=== PATIENT | male | born 1995 | race Caucasian/White ===

== ENCOUNTER 2016-07-28 00:01 | Emergency (ER) | payer BC ==
[~2016-07-28] VITALS: Ht 182.9 cm; Wt 86.5 kg
[2016-07-28 00:03] VITALS: TEMP 36.5; Ht 182.9 cm; Wt 86.5 kg
[2016-07-28] MEDS ORDERED: AMPH10TA2 PO (00:24)
[2016-07-28 00:42] VITALS: BP 126/62; PULSE 54; O2SAT 98
--- NOTE | 2016-07-28 05:24 | EMERGENCY ROOM VISIT NOTE ---
History First contact with patient: 00:09 Chief Complaint: ABDOMINAL PAIN Stated Complaint: ILL/ABDOMINAL PAIN Nursing Triage Summary: pt reports generalized abd pain all day and then felt a "pop" approx 30 min ago. pt now feels numbness in bilateral hands. pt also reports feeling anxious. pt admits to smoking marijuana earlier today also. History of Present Illness The patient is a 20 year old male who presents to the Emergency Room with complaints of feeling anxious and nauseous after smoking marijuana a few hours ago that is now resolved since being in the ER. Patient states he smoked a different batch of marijuana. Patient states he feels fine now like to go. Patient denies chest pain, dyspnea, abdominal pain, vomiting, diarrhea, hallucinations, delusions, IV drug abuse or any other medical complaints. Review of Systems See HPI for pertinent positives & negatives. A total of 10 systems reviewed and were otherwise negative. Past Medical/Surgical History none Social History Smoking Status: Never Smoker Smokeless Tobacco Use: No Alcohol Use: occasionally Drug Use: marijuana Occupation Status: [employer] student Current/Historical Medications Scheduled Amphetamine-Dextroamphetamine 10MG (Adderall 10MG), 10 MG PO DAILY Allergies Coded Allergies: Penicillins (Verified Allergy, Unknown, rash, 07/28/16) Physical Exam Vital Signs Date Time Temp Pulse Resp B/P Pulse Ox O2 Delivery O2 Flow Rate FiO2 07/28/16 00:42 54 20 126/62 98 07/28/16 00:03 36.5 60 20 155/78 99 Room Air Pain Rating (0-10): 0 Physical Exam VITALS: Vitals are noted on the nurse's note and reviewed by myself. Vital signs stable. GENERAL: Pleasant male, in no acute distress, nondiaphoretic, well-developed well-nourished. SKIN: The skin was without rashes, erythema, edema, or bruising. There is no tenting of the skin. Capillary reflex less than 2 seconds. HEAD: Normocephalic atraumatic. EARS: External auditory canals clear, tympanic membranes pearly price without erythema or effusion bilaterally. EYES: Pupils equal round and reactive to light and accommodation. Conjunctivae without injection, sclerae without icterus. Extraocular movements intact. NOSE: Patent, turbinates without inflammation or discharge. MOUTH: Mucous membranes moist. pharynx without erythema or exudate. Uvula midline. Airway patent. Tongue does not deviate. NECK: Supple without nuchal rigidity. No lymphadenopathy. No thyromegaly. Cervical spine is nontender. No JVD. HEART: Regular rate and rhythm without murmurs gallops or rubs. LUNGS: Clear to auscultation bilaterally without wheezes, rales or rhonchi. No dullness to percussion. No retractions or accessory muscle use. ABDOMEN: Positive bowel sounds x 4. Normal tympanic percussion. Soft, nontender, without masses or organomegaly. Pepe sign negative. No guarding or rebound tenderness. MUSCULOSKELETAL: No muscle atrophy, erythema, or edema noted. NEURO: Patient was alert and oriented to person place and time. Normal sensation to light and sharp touch. No focal neurological deficits. Medical Decision & Procedures ED Course Prior records/ancillary studies reviewed and summarized above. Nursing notes reviewed. The patient's history was concerning for smoking marijuana. Differential diagnosis: Etiologies such as side effect of marijuana, metabolic, infection, hypo/ hyperglycemia, electrolyte abnormalities, cardiac sources, intracerebral event, toxicologic, neurologic, as well as others were entertained. Physical examination: As above. ER treatment provided: By mouth fluids On reassessment the patient felt better. Diagnostics interpretation by me: Deferred Exam and history seem consistent with smoking marijuana having side effects. Patient had no medical complaints and requested to leave. I felt was reasonable. He did not have an acute abdomen on exam. He is well-appearing. He was neurovascularly and neurologically intact. He was strongly encouraged to avoid illegal drugs and to follow-up with health services in a few days or here in the ER sooner for chest pain, abdominal pain, numbness, tingling, worsening signs or symptoms or as needed By the evaluation outlined above emergent etiologies such as infection, electrolyte abnormalities, cardiac sources, intracerebral event, toxologic, neurologic, abnormalities blood glucose , metabolic, as well as others were deemed relatively unlikely. The pt informed about the findings as listed above. All questions were answered and pleased with the treatment. Return instructions were outlined and the patient was discharged in stable condition. Referral: The patient was referred back to primary care physician for follow-up in 2 to 3 days for a recheck of the current condition. Medical Decision As above Impression Primary Impression: Marijuana abuse Departure Information Dispostion Home / Self-Care Condition GOOD Forms HOME CARE DOCUMENTATION FORM, IMPORTANT VISIT INFORMATION Patient Instructions Abdominal Pain - [facility], [facility] Additional Instructions Recommend avoiding illegal drugs. Ibuprofen(Motrin, Advil) may be used for fever or pain. Use 600mg every six hours as needed. Take with food. Avoid using more than 2400mg in a 24 hour period. Do not use 2400mg per day for more than three consecutive days without physician direction. Prolonged inappropriate use can lead to stomach upset or ulcers. (AND/OR) Acetaminophen(Tylenol) may be used for fever or pain. Use 1000mg every six hours as needed. Avoid using more than 3000mg in a 24 hour period. Rest and drink plenty of fluids as tolerated. Continue current medications. Avoid strenuous activities and anything that worsens your pain. Resume normal activities once your symptoms resolve. Return to the ER immediately for worsening or persistent chest pain, abdominal pain, vomiting, fevers, chest pains, difficulty breathing, worsening of your condition, or as needed. Follow up with your primary physician in 2-3 days for a recheck of your current condition.
== END 2016-07-28 00:46 | disposition home or self-care (01) ==
LOC: C.EDB 00:01 → EDBD 00:01 → EDSEX 00:01 → C.EDB 00:46
DX: F12.10 Cannabis abuse, uncomplicated (principal); Z79.899 Other long term (current) drug therapy; Z88.0 Allergy status to penicillin

== ENCOUNTER 2017-02-05 13:46 | Emergency (ER) | payer BC ==
[~2017-02-05] VITALS: Ht 182.9 cm; Wt 91.9 kg
[~2017-02-05 13:46] MED LIST: AMPH10TA2 PO
[2017-02-05 13:50] VITALS: Ht 182.9 cm; Wt 91.9 kg
--- NOTE | 2017-02-05 14:22 | EMERGENCY ROOM VISIT NOTE ---
History First contact with patient: 14:02 Chief Complaint: NECK PAIN Stated Complaint: NECK PAIN, FEVER, BODY RASH, LETHARGIC History of Present Illness The patient is a 21 year old male who presents to the Emergency Room with complaints of fever, chills, neck pain, and rash x 5 days. The patient began having symptoms last Thursday evening with fatigue and lethargy. He then began to have fevers (undocumented) and chills on Thursday continuing throughout the week. On Thursday he began to notice a rash on his arms and chest in addition to neck pain with forward flexion. The patient continued to have worsening symptoms throughout the week and went to [facility] yesterday and they started the patient on prednisone (has not started yet) and if symptoms worsen consider going to the hospital. Only recent travel was 2 months ago to the [place]. The patient lives in a Fraternity house and states another housemate had the flu this week and his symptoms had improved. He states his immunizations are up to date and does recall having a Meningitis immunization. The patient denies any headaches but almost like his neck pain is radiating up to the back of his head. He has been taking ibuprofen but only started yesterday. He denies taking any antibiotics or medications during this illness. Review of Systems See HPI for pertinent positives and negatives. A total of ten systems were reviewed and were otherwise negative. Social History Smoking Status: Never Smoker Alcohol Use: occasionally Drug Use: marijuana Occupation Status: [employer] student Current/Historical Medications Scheduled Amphetamine-Dextroamphetamine 10MG (Adderall 10MG), 10 MG PO DAILY Physical Exam Vital Signs Date Time Temp Pulse Resp B/P (MAP) Pulse Ox O2 Delivery O2 Flow Rate FiO2 02/05/17 21:07 64 02/05/17 21:05 65 02/05/17 20:08 72 18 141/72 99 Room Air 02/05/17 19:27 74 02/05/17 18:24 38.2 66 18 123/67 99 Room Air 02/05/17 16:20 66 16 113/62 97 Room Air 02/05/17 15:51 65 02/05/17 15:45 66 16 94/52 97 Room Air 02/05/17 13:50 37.1 90 20 124/74 96 Room Air Physical Exam GENERAL: Awake, alert, in no acute distress HENT: Normocephalic, atraumatic. Oropharynx unremarkable. EYES: Normal conjunctiva. Sclera non-icteric. NECK: Supple. Positive nuchal rigidity. Tenderness to palpation over C6/C7 region. RESPIRATORY: Clear to auscultation. CARDIAC: Regular rate, normal rhythm. Extremities warm and well perfused. Pulses equal. ABDOMEN: Soft, non-distended. No tenderness to palpation. No rebound or guarding. No masses. RECTAL: Deferred. MUSCULOSKELETAL: Chest examination reveals no tenderness. The back is symmetrical on inspection without obvious abnormality. LOWER EXTREMITIES: Calves are equal size bilaterally and non-tender. No edema. No discoloration. NEURO: Normal sensorium. No sensory or motor deficits noted. SKIN: Erythematous splotchy rash with circulars shape distributed over the chest , arms, and legs. Rash does not appear to be lacy, pustular, or raised. Medical Decision & Procedures Laboratory Results 02/05/17 14:32 Red Blood Count 5.15, Mean Corpuscular Volume 83.1, Mean Corpuscular Hemoglobin 30.5, Mean Corpuscular Hemoglobin Concent 36.7, Mean Platelet Volume 9.8, Neutrophils (%) (Auto) 63.1, Lymphocytes (%) (Auto) 27.2, Monocytes (%) (Auto) 9.1, Eosinophils (%) (Auto) 0.3, Basophils (%) (Auto) 0.3, Neutrophils # (Auto) 2.37, Lymphocytes # (Auto) 1.02, Monocytes # (Auto) 0.34, Eosinophils # (Auto) 0.01, Basophils # (Auto) 0.01 02/05/17 14:32 Test 02/05/17 14:32 02/05/17 14:45 02/05/17 14:47 02/05/17 17:00 White Blood Count 3.75 K/uL (4.8-10.8) Red Blood Count 5.15 M/uL (4.7-6.1) Hemoglobin 15.7 g/dL (14.0-18.0) Hematocrit 42.8 % (42-52) Mean Corpuscular Volume 83.1 fL (80-100) Mean Corpuscular Hemoglobin 30.5 pg (25-34) Mean Corpuscular Hemoglobin Concent 36.7 g/dl (32-36) Platelet Count 155 K/uL (130-400) Mean Platelet Volume 9.8 fL (7.4-10.4) Neutrophils (%) (Auto) 63.1 % Lymphocytes (%) (Auto) 27.2 % Monocytes (%) (Auto) 9.1 % Eosinophils (%) (Auto) 0.3 % Basophils (%) (Auto) 0.3 % Neutrophils # (Auto) 2.37 K/uL (1.4-6.5) Lymphocytes # (Auto) 1.02 K/uL (1.2-3.4) Monocytes # (Auto) 0.34 K/uL (0.11-0.59) Eosinophils # (Auto) 0.01 K/uL (0-0.5) Basophils # (Auto) 0.01 K/uL (0-0.2) RDW Standard Deviation 37.9 fL (36.4-46.3) RDW Coefficient of Variation 12.7 % (11.5-14.5) Immature Granulocyte % (Auto) 0.0 % Immature Granulocyte # (Auto) 0.00 K/uL (0.00-0.02) Anion Gap 9.0 mmol/L (3-11) Est Creatinine Clear Calc Drug Dose 107.8 ml/min Estimated GFR () 100.3 Estimated GFR (Non- 86.5 BUN/Creatinine Ratio 8.2 (10-20) Calcium Level 9.1 mg/dl (8.5-10.1) Total Bilirubin 0.8 mg/dl (0.2-1) Aspartate Amino Transf (AST/SGOT) 60 U/L (15-37) Alanine Aminotransferase (ALT/SGPT) 54 U/L (12-78) Alkaline Phosphatase 94 U/L (45-117) Total Protein 7.4 gm/dl (6.4-8.2) Albumin 3.6 gm/dl (3.4-5.0) Globulin 3.8 gm/dl (2.5-4.0) Albumin/Globulin Ratio 0.9 (0.9-2) Lyme Disease IgG Antibody NEG (NEG) Lyme Disease IgM Antibody NEG (NEG) Influenza Type A Antigen Neg for Influ A (NEG) Influenza Type B Antigen Neg for Influ B (NEG) Urine Color DK YELLOW Urine Appearance CLEAR (CLEAR) Urine pH 5.0 (4.5-7.5) Urine Specific Otis 1.024 (1.000-1.030) Urine Protein TRACE (NEG) Urine Glucose (UA) NEG (NEG) Urine Ketones NEG (NEG) Urine Occult Blood NEG (NEG) Urine Nitrite NEG (NEG) Urine Bilirubin NEG (NEG) Urine Urobilinogen NEG (NEG) Urine Leukocyte Esterase NEG (NEG) Urine WBC (Auto) 1-5 /hpf (0-5) Urine RBC (Auto) 0-4 /hpf (0-4) Urine Hyaline Casts (Auto) 1-5 /lpf (0-5) Urine Epithelial Cells (Auto) 5-10 /lpf (0-5) Urine Bacteria (Auto) NEG (NEG) CSF Color COLORLESS CSF Appearance CLEAR CSF WBC 1 /uL (0-5) CSF RBC 28 /uL (0) CSF Xanthrochromic NO XANTHOCHROMIA CSF Cell Count Tube # 1 CSF Chemistry Tube # 2 CSF Glucose 64 mg/dl (40-70) CSF Total Protein 22.3 mg/dl (15.0-45.0) Test 02/05/17 18:56 Medications Administered Medications (Trade) Dose Ordered Sig/Juan Route Start Time Stop Time Status Last Admin Dose Admin Acetaminophen (Tylenol Tab) 1,000 mg NOW STAT PO 02/05/17 18:02 02/05/17 18:03 DC 02/05/17 18:22 1,000 MG Sodium Chloride 1,000 ml @ 999 mls/hr Q1H1M STAT IV 02/05/17 18:02 02/05/17 19:02 DC 02/05/17 18:23 999 MLS/HR Ketorolac Tromethamine (Toradol Inj) 30 mg NOW STAT IV 02/05/17 18:41 02/05/17 18:42 DC 02/05/17 18:55 30 MG Acyclovir Sodium 800 mg/Dextrose 266 ml @ 265 mls/hr NOW ONCE IV 02/05/17 19:00 02/05/17 20:00 DC 02/05/17 19:13 265 MLS/HR ED Course Patient is a 21 year old male that presents with a fever, chills, rash, and neck pain - Lab Work Evaluation: CBC, CMP, Blood Cultures, UA, Influenza Virus A or B - Imaging: CXR, CT Head - Results: Influenza A and B Negative, Lyme Negative, Patient does not have an elevated WBC count - Performed Lumbar Puncture at 5:00pm, clear fluid with no cloudy appearance collected in 4 vials - Ordered CSF Protein, Glucose, Cell Count, Culture, HSV Medical Decision Patient is a 21 year old male that presents with a 5 day history of fever, chills, rash, and neck pain Etiologies such as meningitis, sinusitis, headache, tension headache, bacteremia , scarlet fever, viral infection as well as others were entertained. The patient was found to have a normal WBC count, negative influenza, negative lyme, and low WBC on CSF fluid. Patient tolerated the LP well with no headache at this time. Patient was given a dose of Rocephin, Vancomycin, and Acyclovir in the ED. Despite negative workup at this time, patient is febrile with other symptoms including rash and neck stiffness concerning meningitis. While we await gram stain and other lab evaluation, we will contact the hospitalist service for admission. Impression Primary Impression: Fever Additional Impressions: Neck pain Rash Departure Information Dispostion Home / Self-Care Condition GOOD Prescriptions Doxycycline (Monohydrate) (Doxycycline) 100 Mg Cap 100 MG PO BID for 14 Days, #28 TAB Prov: Jere Glasgow .MD 02/05/17 Referrals No Doctor, Assigned (PCP) Patient Instructions [facility] Additional Instructions You were evaluated in the Emergency Department for a fever, neck stiffness, and rash. During your workup were looked at a CBC, BMP, Lyme Titer, Influenza Virus Titer, Chest X-ray, and performed a Lumbar Puncture. During our workup there were no significant laboratory finding concerning for any underlying bacterial infection or meningitis. Lab Work Still Pending: - CSF testing for Varicella Zoster and Herpes Simplex Virus 1 & 2 - [place] Spotted Fever Medications: Doxycycline 100mg: Take 1 Tablet twice daily for 14 days --> make sure to have follow up Lyme testing in 2 weeks. If positive continue for 7 more days. If negative discontinue. Ibuprofen(Motrin, Advil) may be used for fever or pain. Use 600mg every six hours as needed. Take with food. Avoid using more than 2400mg in a 24 hour period. Do not use 2400mg per day for more than three consecutive days without physician direction. Prolonged inappropriate use can lead to stomach upset or ulcers. (AND/OR) Acetaminophen(Tylenol) may be used for fever or pain. Use 1000mg every six hours as needed. Avoid using more than 4000mg in a 24 hour period. Return to the ER for passing out, worsening headache, rash, changes in mental status, fevers, vision problems, neck stiffness/pain, vomiting, worsening of your condition, or as needed. Follow up with your primary physician in 2-3 days for a recheck of your current condition. - May sure to repeat a Lyme test within a month to re-evaluate for infection ( can often be negative with early disease) Resident Tracking Resident Involvement: Resident Care Provided Care Provided: Adult ED Problem Qualifiers Primary Impression: Fever Fever type: unspecified Qualified Codes: R50.9 - Fever, unspecified
[2017-02-05] MEDS ORDERED: LIDO/EPINEPHRINE/SOD BICARB 20 ML VIAL INFIL ONE (14:44)
[2017-02-05] MEDS ORDERED: LIDOCAINE/EPINEPHRINE 1% 20 ML VIAL ONE (14:45)
--- NOTE | 2017-02-05 14:53 | DIAGNOSTIC IMAGING REPORT ---
CHEST ONE VIEW PORTABLE CLINICAL HISTORY: fever cough COMPARISON STUDY: No previous studies for comparison. FINDINGS: The bones soft tissues and hemidiaphragms are normal. The cardiomediastinal silhouette is normal. The lungs are clear. The pulmonary vasculature is normal. IMPRESSION: Negative chest. The above report was generated using voice recognition software. It may contain grammatical, syntax or spelling errors. Electronically signed by: Matthew Palacios M.D. 02/05/2017 2:52 PM Dictated Date/Time: 02/05/2017 2:51 PM
[2017-02-05 15:07] LABS: BASO % 0.3 %; BASO ABS # 0.01 K/uL (0-0.2); COMPLETE YES; EOS % 0.3 %; HEMATOCRIT 42.8 % (42-52); LYMPH % 27.2 %; LYMPH ABS # 1.02 K/uL (1.2-3.4); MEAN CELL VOLUME 83.1 fL (80-100); MEAN CORPUSCULAR HEMOGLOBIN 30.5 pg (25-34); MEAN CORPUSCULAR HGB CONC 36.7 g/dl (32-36); MEAN PLATELET VOLUME 9.8 fL (7.4-10.4); MONO % 9.1 %; NEUT % 63.1 %; PLATELET COUNT 155 K/uL (130-400); RED BLOOD COUNT 5.15 M/uL (4.7-6.1); WHITE BLOOD COUNT 3.75 K/uL (4.8-10.8)
[2017-02-05 15:15] LABS: URINE APPEARANCE CLEAR (CLEAR); URINE BILIRUBIN NEG (NEG); URINE COLOR DK YELLOW; URINE NITRITE NEG (NEG); URINE SPECIFIC GRAVITY 1.024 (1.000-1.030); UROBILINOGEN NEG (NEG)
[2017-02-05 15:17] LABS: MANUAL MICROSCOPIC REQUIRED? NO; REVIEW REQ? NO
[2017-02-05 15:26] LABS: BUN/CREATININE RATIO 8.2 (10-20); CALCIUM 9.1 mg/dl (8.5-10.1); CREATININE 1.2 mg/dl (0.60-1.40); POTASSIUM 3.4 mmol/L (3.5-5.1)
[2017-02-05 15:29] LABS: ALB/GLOB RATIO 0.9 (0.9-2)
[2017-02-05 16:18] LABS: LYME DISEASE AB IGG NEG (NEG); LYME DISEASE AB IGM NEG (NEG)
[2017-02-05] MEDS ORDERED: ACETAMINOPHEN 500 MG TAB PO PRN (17:45)
[2017-02-05] MEDS ORDERED: ACETAMINOPHEN 500 MG TAB PO STA (18:02)
[2017-02-05] MEDS ORDERED: SODIUM CHLORIDE 0.9% 1000ML 1,000 ML IV STA (18:02)
[2017-02-05 18:07] LABS: CSF CHEMISTRY TUBE # 2
[2017-02-05 18:10] LABS: CSF TOTAL PROTEIN 22.3 mg/dl (15.0-45.0)
--- NOTE | 2017-02-05 18:24 | Procedure Note ---
Procedure Note Procedure Date Feb 05, 2017. Procedure Description Procedure Name: Lumbar Puncture Procedure time out: side/site verified, patient ID confirmed, correct procedure Consent obtained: written Time of procedure: 17:00 Performed by: resident Indications: diagnostic Contraindications: none Description: Procedure - Lumbar Puncture Indication - meningitis Anesthesia - local 1% lidocaine Informed consent was obtained from the patient. The area was prepped and draped in the usual sterile fashion. Using landmarks, a 22 guage spinal needle was inserted in the L4-L5 innerspace. The stylet was removed and 4cc of clear fluid was collected and sent for routine studies. The patient tolerated the procedure well. There was no blood loss or hematoma. Complications: none Patient tolerated procedure: well Post-procedure vital signs: reviewed and stable Resident Tracking Resident Involvement: Resident Care Provided Care Provided: Adult ED
[2017-02-05 18:33] LABS: CSF APPEARANCE CLEAR; CSF COLOR COLORLESS; CSF XANTHOCHROMIC NO XANTHOCHROMIA
[2017-02-05 18:39] LABS: CSF APPEARANCE CLEAR; CSF COLOR COLORLESS; CSF XANTHOCHROMIC NO XANTHOCHROMIA
[2017-02-05] MEDS ORDERED: KETOROLAC TROMETHAMINE 30 MG/ML VIAL IV STA (18:41)
[2017-02-05] MEDS ORDERED: ACYCLOVIR SOD INJ 800 MG in DEXTROSE 5% 250ML 250 ML IV ONE (19:00)
[2017-02-05] MEDS ORDERED: ACYCLOVIR SOD INJ 800 MG in DEXTROSE 5% 250ML 250 ML IV SCH (19:00)
--- NOTE | 2017-02-05 20:19 | EMERGENCY ROOM VISIT NOTE ---
ED Visit Note First contact with patient: 20:19 Resident Physician Supervision Note: I was present with Dr. Glasgow during the history and exam. I discussed the case with the resident and agree with the findings and plan as documented in the note. Documented By: Rodríguez Bowen
[2017-02-05] MEDS ORDERED: DOXY-300 PO (21:12)
[2017-02-05 21:27] VITALS: BP 138/74; PULSE 65; TEMP 37.9; O2SAT 99
[2017-02-07 18:34] LABS: VARICELLA ZOSTER DNA PCR QUAL Not Detected (Not Detected); VZ DNA SOURCE CSF
[2017-02-09 19:42] LABS: RMSF IgM AB Not Detected (Not Detected)
== END 2017-02-05 21:27 | disposition home or self-care (01) ==
LOC: C.EDB 13:47 → C.EDA 21:27
DX: R50.9 Fever, unspecified (principal); M54.2 Cervicalgia; R21 Rash and other nonspecific skin eruption; Z79.899 Other long term (current) drug therapy